=== PATIENT | female | born 1985 | race Caucasian/White ===

== ENCOUNTER 2017-07-26 18:16 | Emergency (ER) | payer MEDICAID, OTHER ==
[~2017-07-26] VITALS: Ht 162.6 cm; Wt 75.0 kg
[~2017-07-26 18:16] MED LIST: LORA-474 PO; MELO15TA2 PO; MIRTA15 PO; PRAZ2 PO; [UNRECOGNIZED DRUG - CODE] PO
[2017-07-26] MEDS ORDERED: IOHEXOL 350 MG/ML 10 ML VIAL (for RAD DIAG) IVCONTRAST ONE (18:17)
[2017-07-26 18:21] VITALS: BP 126/73; PULSE 87; RESP 14; TEMP 98.7; O2SAT 95
[2017-07-26] MEDS ORDERED: BUPR75TA PO (19:01)
[2017-07-26] MEDS ORDERED: ALPR.5 PO (19:01)
[2017-07-26] MEDS ORDERED: ALPR.25 PO (19:01)
[2017-07-26] MEDS ORDERED: PRAZ2CAP PO (19:01)
[2017-07-26] MEDS ORDERED: ZOLO100T PO (19:01)
[2017-07-26] MEDS ORDERED: TYLE325T PO (19:03)
[2017-07-26] MEDS ORDERED: OXYC1CAP PO (19:03)
[2017-07-26] MEDS ORDERED: IBUP-232 PO (19:03)
--- NOTE | 2017-07-26 19:14 | PD ---
HPI Chief Complaint: Abdominal Pain Time Seen by Provider: 19:14 Travel History International Travel<30 days: No Contact w/Intl Traveler<30days: No Traveled to known affect area: No History of Present Illness HPI 31-year-old female presents the emergency department with lower abdominal pain and frequent urination. Patient reports a vaginal hysterectomy 5 days prior to this visit. This was performed at the [facility]. Patient states no fever, vomiting or diarrhea. She is moving her bowels. Patient states she has not been taking her Percocet that was prescribed for her for pain. She's been taking ibuprofen and Tylenol. She states she does not have the sensation of needing to urinate since her procedure, however she feels lower abdominal cramping and distention, and does urinate approximately every hour. Patient states this is gotten worse in the last 2 days. She denies significant vaginal bleeding or discharge. PFSH Past Medical History Anxiety: Yes Kidney Stones: Yes Psychiatric: Yes (PTSD) ?: Not : 4 Para: 4 Past Surgical History Gynecologic Surgery: Yes Social History Alcohol Use: No Tobacco Use: No Substance Use: No Allergies-Medications (Allergen,Severity, Reaction): Coded Allergies: No Known Allergies (Verified , 12/15/10) Reported Meds & Prescriptions Reported Meds & Active Scripts Active Reported Tylenol (Acetaminophen) 325 Mg Tab 650 Mg PO BID Ibuprofen 600 Mg Tab 600 Mg PO Q8H PRN Oxycodone (Oxycodone HCl) 5 Mg Cap 5 Mg PO BID PRN Prazosin (Prazosin HCl) 2 Mg Cap 2 Mg PO HS Zoloft (Sertraline HCl) 100 Mg Tab 100 Mg PO HS Bupropion HCl 75 Mg Tab 75 Mg PO DAILY Xanax (Alprazolam) 0.5 Mg Tab 0.5 Mg PO HS PRN Xanax (Alprazolam) 0.25 Mg Tab 0.25 Mg PO BID PRN Review of Systems Except as stated in HPI: all other systems reviewed are Neg General / Constitutional: No: Fever, Chills Eyes: No: Visual changes HENT: No: Headaches Cardiovascular: No: Chest Pain or Discomfort Respiratory: No: Shortness of Breath Gastrointestinal: Positive: Nausea, Abdominal Pain (see history present illness ), No: Vomiting, Diarrhea Genitourinary: Positive: Frequency, Pelvic Pain, Vaginal Bleeding (minimal status post hysterectomy.), No: Dysuria, Nocturia, Hematuria, Decreased Urinary Output, Flank Pain, Discharge Musculoskeletal: No: Pain Skin: No Rash Neurologic: No: Weakness Psychiatric: No: Depression Endocrine: No: Polydipsia Hematologic/Lymphatic: No: Easy Bruising Physical Exam Narrative GENERAL: Patient appears in mild distress. SKIN: Warm and dry. Patient has well-healing trocar scars on the anterior abdomen at the umbilicus, and bilateral abdomen just above the pelvic rim. HEAD: Atraumatic. Normocephalic. EYES: Pupils equal and round. No scleral icterus. No injection or drainage. ENT: No nasal bleeding or discharge. Mucous membranes pink and moist. Pharynx is clear. Airways patent. NECK: Trachea midline. Supple nontender. CARDIOVASCULAR: Regular rate and rhythm. RESPIRATORY: No accessory muscle use. Clear to auscultation. Breath sounds equal bilaterally. GASTROINTESTINAL: Abdomen soft, moderate suprapubic tenderness, nondistended. No palpable distended bladder. Hepatic and splenic margins not palpable. MUSCULOSKELETAL: Extremities without clubbing, cyanosis, or edema. No obvious deformities. NEUROLOGICAL: Awake and alert. No obvious cranial nerve deficits. Motor grossly within normal limits. Five out of 5 muscle strength in the arms and legs. Normal speech. PSYCHIATRIC: Appropriate mood and affect; insight and judgment normal. Data Data Last Documented VS Vital Signs Date Time Temp Pulse Resp B/P (MAP) Pulse Ox O2 Delivery O2 Flow Rate FiO2 07/26/17 20:22 16 07/26/17 18:21 98.7 87 126/73 (90) 95 Orders Orders Complete Blood Count With Diff (07/26/17 19:25) Comprehensive Metabolic Panel (07/26/17 19:25) Urinalysis - C+S If Indicated (07/26/17 19:25) Iv Access Insert/Monitor (07/26/17 19:25) Ecg Monitoring (07/26/17 19:25) Sodium Chloride 0.9% Flush (Ns Flush) (07/26/17 19:30) Ondansetron Inj (Zofran Inj) (07/26/17 19:30) Ct Abd/Pel W Iv Contrast(Rout) (07/26/17 19:25) Bladder Scan PRN (07/26/17 19:25) Lactic Acid (07/26/17 19:31) Morphine Inj (Morphine Inj) (07/26/17 20:00) Iohexol 350 Inj (Omnipaque 350 Inj) (07/26/17 18:17) Labs Laboratory Tests Test 07/26/17 20:10 White Blood Count 11.1 TH/MM3 Red Blood Count 4.43 MIL/MM3 Hemoglobin 13.1 GM/DL Hematocrit 39.0 % Mean Corpuscular Volume 88.2 FL Mean Corpuscular Hemoglobin 29.6 PG Mean Corpuscular Hemoglobin Concent 33.6 % Red Cell Distribution Width 12.8 % Platelet Count 238 TH/MM3 Mean Platelet Volume 9.7 FL Neutrophils (%) (Auto) 70.2 % Lymphocytes (%) (Auto) 21.2 % Monocytes (%) (Auto) 4.9 % Eosinophils (%) (Auto) 3.1 % Basophils (%) (Auto) 0.6 % Neutrophils # (Auto) 7.8 TH/MM3 Lymphocytes # (Auto) 2.3 TH/MM3 Monocytes # (Auto) 0.5 TH/MM3 Eosinophils # (Auto) 0.3 TH/MM3 Basophils # (Auto) 0.1 TH/MM3 CBC Comment DIFF FINAL Differential Comment Urine Color LIGHT-YELLOW Urine Turbidity CLEAR Urine pH 7.0 Urine Specific [place] 1.004 Urine Protein NEG mg/dL Urine Glucose (UA) NEG mg/dL Urine Ketones NEG mg/dL Urine Occult Blood NEG Urine Nitrite NEG Urine Bilirubin NEG Urine Urobilinogen LESS THAN 2.0 MG/DL Urine Leukocyte Esterase NEG Urine RBC LESS THAN 1 /hpf Urine WBC LESS THAN 1 /hpf Urine Squamous Epithelial Cells <1 /hpf Microscopic Urinalysis Comment CULT NOT INDICATED Blood Urea Nitrogen 8 MG/DL Creatinine 0.56 MG/DL Random Glucose 81 MG/DL Total Protein 7.4 GM/DL Albumin 3.8 GM/DL Calcium Level 9.2 MG/DL Alkaline Phosphatase 70 U/L Aspartate Amino Transf (AST/SGOT) 32 U/L Alanine Aminotransferase (ALT/SGPT) 44 U/L Total Bilirubin 0.3 MG/DL Sodium Level 137 MEQ/L Potassium Level 3.9 MEQ/L Chloride Level 102 MEQ/L Carbon Dioxide Level 26.3 MEQ/L Anion Gap 9 MEQ/L Estimat Glomerular Filtration Rate 125 ML/MIN Lactic Acid Level 0.4 mmol/L [facility] Medical Decision Making Medical Screen Exam Complete: Yes Emergency Medical Condition: Yes Differential Diagnosis Postop pain. Possible urinary retention. Status post hysterectomy. Narrative Course Patient's medically stable at time of exam. Labs ordered including CBC, CMP, and urinalysis. CT the abdomen/pelvis with IV contrast is ordered. Pre-and post void bladder scan is ordered. CBC is unremarkable. CMP is unremarkable. Urinalysis shows no sign of infection. CT the abdomen and pelvis is read as no acute process per radiologist. Bladder scan reveals a residual of 35 mL. Patient is felt to have post surgical pain with urinary frequency. Patient is given Zofran for nausea 4 mg every 6 hours when necessary #15. Recommend patient take her Percocet as prescribed at least twice a day to control her pain better as well as continue the ibuprofen and Tylenol as needed. Patient scheduled to follow up with her NEWS EDITOR in 9 days, however I suggest she follow up sooner. Patient should follow up immediately if she has worsening nausea, fever, chills , or other symptoms. 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 CMP is unremarkable. Urinalysis shows no sign of infection. CT the abdomen and pelvis is read as no acute process per radiologist. Bladder scan reveals a residual of 35 mL. Patient is felt to have post surgical pain with urinary frequency. Patient is given Zofran for nausea 4 mg every 6 hours when necessary #15. Recommend patient take her Percocet as prescribed at least twice a day to control her pain better as well as continue the ibuprofen and Tylenol as needed. Patient scheduled to follow up with her NEWS EDITOR in 9 days, however I suggest she follow up sooner. Patient should follow up immediately if she has worsening nausea, fever, chills , or other symptoms. Med/Other Pt SpecificInfo: Prescription(s) given Disposition: 01 DISCHARGE HOME Condition: Stable [place] Deiz Jul 26, 2017 19:14
[2017-07-26] MEDS ORDERED: SODIUM CHLORIDE 0.9% FLUSH 10 ML FLUSH IVF PRN (19:30)
[2017-07-26] MEDS ORDERED: ONDANSETRON HCL 4 MG/2 ML VIAL IVP ONE (19:30)
[2017-07-26] MEDS ORDERED: MORPHINE SULFATE 4 MG/ML INJ IV PUSH ONE (20:00)
[2017-07-26 20:22] VITALS: RESP 16
[2017-07-26 20:24] LABS: AUTOMATED NEUTROPHIL # 7.8 TH/MM3 (1.8-7.7); BASOPHIL # 0.1 TH/MM3 (0-0.2); BASOPHIL % 0.6 % (0.0-2.0); EOSINOPHIL # 0.3 TH/MM3 (0-0.4); EOSINOPHIL % 3.1 % (0.0-4.0); HEMO FLAGS DIFF FINAL; LYMPH % 21.2 % (9.0-44.0); LYMPHOCYTE # 2.3 TH/MM3 (1.0-4.8); MEAN CELL VOLUME 88.2 FL (80.0-100.0); MEAN CORPUSCULAR HEMOGLOBIN 29.6 PG (27.0-34.0); MEAN CORPUSCULAR HGB CONC 33.6 % (32.0-36.0); MONO % 4.9 % (0.0-8.0); NEUT % 70.2 % (16.0-70.0); PLATELET COUNT 238 TH/MM3 (150-450); RED BLOOD COUNT 4.43 MIL/MM3 (4.00-5.30); RED CELL DISTRIBUTION WIDTH 12.8 % (11.6-17.2); WHITE BLOOD COUNT 11.1 TH/MM3 (4.0-11.0)
[2017-07-26 20:25] LABS: BLOOD, URINE NEG (NEG); COMMENT (UR) CULT NOT INDICATED; CULTURE IF INDICATED CULT NOT INDICATED; GLUCOSE,URINE NEG (NEG); KETONE, URINE NEG (NEG); NITRITE,URINE NEG (NEG); SQUAMOUS EPITHELIAL CELL URINE <1 /hpf (0-5); URINE COLOR LIGHT-YELLOW (YELLW/STRAW)
--- NOTE | 2017-07-26 20:34 | RADRPT ---
EXAM DATE/TIME: 07/26/2017 20:07 [place] COMPARISON: No previous studies available for comparison. INDICATIONS : Patient had a hysterectomy on wednesday now having nausea,abdomen pressure and frequent urination. IV CONTRAST: 71 cc Omnipaque 350 (iohexol) IV ORAL CONTRAST: No oral contrast ingested. RADIATION DOSE: 9.96 CTDIvol (mGy) MEDICAL HISTORY : Renal calculi. SURGICAL HISTORY : Hysterectomy. ENCOUNTER: Initial ACUITY: 1 day PAIN SCALE: 8/10 LOCATION: Abdomen TECHNIQUE: Volumetric scanning of the abdomen and pelvis was performed. Using automated exposure control and ad justment of the mA and/or kV according to patient size, radiation dose was kept as low as reasonably achievable to obtain optimal diagnostic quality images. DICOM format image data is available electro nically for review and comparison. FINDINGS: LOWER LUNGS: The visualized lower lungs are clear. LIVER: Homogeneous density without lesion. There is no dilation of the biliary tree. No calcified gallston es. SPLEEN: Normal size without lesion. PANCREAS: Within normal limits. KIDNEYS: Normal in size and shape. There is no mass, stone or hydronephrosis. ADRENAL GLANDS: Within normal limits. VASCULAR: There is no aortic aneurysm. BOWEL/MESENTERY: The stomach, small bowel, and colon demonstrate no acute abnormality. There is no free intraperitone al air or fluid. Examination of the right lower quadrant demonstrates no abnormality. The appendix is identified and appears normal.ABDOMINAL WALL: Within normal limits. RETROPERITONEUM: There is no lymphadenopathy. BLADDER: No wall thickening or mass. REPRODUCTIVE: The uterus is surgically absent. Postsurgical changes are present INGUINAL: There is no lymphadenopathy or hernia. MUSCULOSKELETAL: Within normal limits for patient age. CONCLUSION: 1. No evidence of acute intracranial pathology. No masses are identified. Postsurgical changes as abo ve. Aquiles Dupree MD on July 26, 2017 at 20:30 Board Certified Radiologist. This report was verified electronically.
[2017-07-26 20:43] LABS: ALT (GPT) 44 U/L (10-53); ANION GAP 9 MEQ/L (5-15); AST (GOT) 32 U/L (15-37); BICARBONATE 26.3 MEQ/L (21.0-32.0); BLOOD UREA NITROGEN 8 MG/DL (7-18); CHLORIDE 102 MEQ/L (98-107); GLOMERULAR FILTRATION RATE 125 ML/MIN (>89); POTASSIUM 3.9 MEQ/L (3.5-5.1); SODIUM (NA) 137 MEQ/L (136-145)
[2017-07-26 20:46] LABS: ALKALINE PHOSPHATASE 70 U/L (45-117); TOTAL BILIRUBIN ADULT 0.3 MG/DL (0.2-1.0)
[2017-07-26] MEDS ORDERED: ZOFR4TAB PO (21:57)
[2017-07-26 22:03] VITALS: BP 130/75
== END 2017-07-26 22:14 | disposition home or self-care (01) ==
LOC: NEPC 18:16
DX: G89.18 Other acute postprocedural pain (principal); R35.0 Frequency of micturition; Z98.890 Other specified postprocedural states; Z86.59 Personal history of other mental and behavioral disorders; Z87.442 Personal history of urinary calculi
CPT/HCPCS: 51798; 74177; 80053; 81001; 83605; 85025; 96374; 96375; 99285; J2270; J2405; Q9967